=== PATIENT | female | born 1985 | race Caucasian/White ===

== ENCOUNTER → 2016-11-21 | Outpatient (CLI) | payer OTHER ==
--- NOTE | 2016-11-21 16:04 | DI ---
History: Right ovarian cyst followup. Procedure: Transabdominal and transvaginal imaging was performed and compared to prior 09/26/16 study . Findings: The patient has what appears to be a moderate corpus luteum cyst which is 0.9 x 1.3 cm. The ovary itself has 2.8 x 1.9 cm. Good perfusion identified. Several other small follicles observed Impression: Findings consistent with a prominent corpus luteum cyst on the right side. Study limited to the right ovary. Consider followup examination in 4-6 weeks.
== END ==
LOC: US 12:45
PROVIDERS: ATTEND Obstetrics & Gynecology
DX: N83.291 Other ovarian cyst, right side (principal)
CPT/HCPCS: 76830